=== PATIENT | male | born 1975 | race Caucasian/White ===

== ENCOUNTER 2019-01-19 15:37 | Emergency (ER) | payer OTHER ==
[~2019-01-19] VITALS: Ht 172.7 cm; Wt 79.4 kg
[2019-01-19 15:42] VITALS: BP 129/98
--- NOTE | 2019-01-19 16:22 | VNOTE ---
CALL BACK NOTE CALL BACK Patient presents with concern for possible genitourinary injury. After being made aware there is no urology coverage at this facility, the patient declines evaluation prefers to be cared for elsewhere. I did offer to evaluate the patient, but the patient declines evaluation. CHARI CRAMER DO Jan 19, 2019 16:22
== END 2019-01-19 16:20 | disposition home or self-care (01) ==
LOC: ER 15:37
DX: S30.21XA Contusion of penis, initial encounter (principal); Z53.21 Procedure and treatment not carried out due to patient leaving prior to being seen by health care provider; X50.9XXA Other and unspecified overexertion or strenuous movements or postures, initial encounter; Y93.89 Activity, other specified; Y92.89 Other specified places as the place of occurrence of the external cause; Y99.8 Other external cause status